=== PATIENT | male | born 1980 | race Hispanic/Latino ===

== ENCOUNTER 2020-08-03 12:40 | Outpatient (CLI) | payer OTHER ==
--- NOTE | 2020-08-03 14:24 | MRI ---
MRI LUMBAR SPINE WITHOUT CONTRAST: INDICATION: Back pain. Strain of lumbar region. FINDINGS: Lumbar vertebrae maintain normal height and alignment. Vertebral body signal is normal. The disk sp aces are preserved. L1-2: No significant disk bulge. No central canal or foraminal stenosis. L2-3: No significant disk bulge. Mild facet arthrosis. No central canal or foraminal stenosis. L3-4: Minimal disk bulge. Mild facet arthrosis. No significant central canal or foraminal stenosis . L4-5: There is an annular fissure with small central disk protrusion which flattens the anterior the selena sac. Mild to moderate facet hypertrophy. Posterior epidural fat. These changes compress the th ecal sac resulting in mild to moderate central canal stenosis. No significant foraminal stenosis. L5-S1: Mild diffuse disk bulge abuts the thecal sac. Mild facet hypertrophy. 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 No significant central canal stenosis. No evidence of signific ant foraminal stenosis. IMPRESSION: Annular fissure with small disk protrusion at L4-5 compressing the thecal sac as described above. POS: TOBIAS
--- NOTE | 2020-08-03 15:00 | MRI ---
MRI OF THE RIGHT SHOULDER WITHOUT CONTRAST: INDICATION: History of right leg and arm weakness after a fall. FINDINGS: There is abnormal linear T2 signal involving the anterior superior, superior, and posterior superior glenoid labrum with linear extension into the biceps anchor complex suspicious for type IV SLAP tear. The biceps tendon is located. There is a partial thickness bursal surface tear involving the mid s upraspinatus at the footprint involving less than 1/3 of the tendon thickness. There is moderate sup raspinatus tendinosis and mild infraspinatus tendinosis. No full-thickness tear is evident. A small amount of fluid is seen within the subacromial subdeltoid bursa. There is mild biceps tendinosis. No muscular atrophy is evident. There is moderate AC joint osteoarthrosis. No os acromiale is evide nt. There is a type II acromion. Biceps tendon is located within the bicipital groove. There is so me moderate tendinosis of the subscapularis with a small amount of intratendinous delamination. The anterior inferior glenohumeral labral ligamentous complex appears intact. IMPRESSION: 1. Partial thickness bursal surface tear of the mid supraspinatus at the footprint with moderate sup raspinatus and mild infraspinatus tendinosis. 2. Moderate subscapularis tendinosis. A small area of intratendinous delamination involving the shear scrapman nial aspect of the subscapularis. 3. Type IV superior labrum anterior to posterior tear with extension of the biceps anchor. 4. Mild biceps tendinosis. 5. Moderate acromioclavicular osteoarthrosis. POS: BH
--- NOTE | 2020-08-03 15:58 | MRI ---
MRI OF THE RIGHT KNEE WITHOUT CONTRAST: INDICATION: History of right leg and arm pain with a history of fall. FINDINGS: There is moderate to severe diffuse chondral thinning involving the medial femoral tibial joint indra rtment with moderate diffuse chondral thinning involving the lateral femoral tibial compartment. The re is moderate to severe narrowing involving the lateral patellofemoral compartment. There are promi nent arch spikes involving the major compartments of the right knee. There is a horizontal oriented tear involving the body and posterior junction of the medial meniscus. There is a partial thickness undersurface radial tear involving the central posterior horn of the medial meniscus with partial med ial extrusion. The lateral meniscus appears intact. The ACL, PCL, MCL, and LCLC are intact. The ex tensor mechanism is intact. IMPRESSION: 1. Mild osteoarthrosis of the right knee. 2. Median meniscal tear. POS: BH
== END 2020-08-03 12:41 | disposition home or self-care (01) ==
LOC: TBSIIMAG 12:40
PROVIDERS: ATTEND Family Medicine
DX: S39.012D Strain of muscle, fascia and tendon of lower back, subsequent encounter (principal); S46.911D Strain of unspecified muscle, fascia and tendon at shoulder and upper arm level, right arm, subsequent encounter; S86.911D Strain of unspecified muscle(s) and tendon(s) at lower leg level, right leg, subsequent encounter; M17.11 Unilateral primary osteoarthritis, right knee; S83.241A Other tear of medial meniscus, current injury, right knee, initial encounter; M19.011 Primary osteoarthritis, right shoulder; M67.813 Other specified disorders of tendon, right shoulder; S43.431A Superior glenoid labrum lesion of right shoulder, initial encounter; S46.211A Strain of muscle, fascia and tendon of other parts of biceps, right arm, initial encounter; M75.111 Incomplete rotator cuff tear or rupture of right shoulder, not specified as traumatic; M51.26 Other intervertebral disc displacement, lumbar region; Q05.7 Lumbar spina bifida without hydrocephalus
CPT/HCPCS: 72148